=== PATIENT | female | born 1980 | race Caucasian/White ===

== ENCOUNTER 2020-03-07 22:07 | Emergency (ER) | payer OTHER ==
[~2020-03-07] VITALS: Ht 157.5 cm; Wt 83.9 kg
[2020-03-07 22:19] VITALS: BP 158/79
[2020-03-07] MEDS ORDERED: KETOROLAC 60 MG/2 ML VIAL IM ONE (22:50)
--- NOTE | 2020-03-07 23:17 | NUR ---
PT REFUSED IM TORODOL. ERMD MADE AWARE
--- NOTE | 2020-03-07 23:25 | NUR ---
39F PRESENTS TO ED WITH C/O ARM PAIN AND LT ARM NUMBNESS THAT RADIATES TO CHEST. PT C/O TIGHTNESS TO CHEST. REPORTS 3/10 CHEST PAIN. RR EVEN AND UNLABORED. DENIES N/V/D. DENIES SOB/COUGH. PT NEGATIVE FOR COVID SCREENING. PT WEARING MASK. PLACED ON CARDIAC MONITORING AND POSITIONED FOR COMFORT AT BED. HOB ELEVATED. BED LOWEST AND LOCKED, RAILS X 2
--- NOTE | 2020-03-07 23:28 | NUR ---
Dr. Pacheco examining patient.
--- NOTE | 2020-03-07 23:41 | NUR ---
EKG PERFORMED AT BEDSIDE.
[2020-03-07 23:45] VITALS: BP 158/79
--- NOTE | 2020-03-08 00:01 | NUR ---
Patient discharged with v/s stable. Written and verbal after care instructions given and explained. Patient alert, oriented and verbalized understanding of instructions. Ambulatory with steady gait. All questions addressed prior to discharge. ID band removed. Patient advised to follow up with PMD. Rx of NORCO AND MOTRIN given. Patient educated on indication of medication including possible reaction and side effects. Opportunity to ask questions provided and answered.
== END 2020-03-08 00:01 | disposition home or self-care (01) ==
LOC: MED 22:07
DX: M79.602 Pain in left arm (principal); E11.9 Type 2 diabetes mellitus without complications; I10 Essential (primary) hypertension
CPT/HCPCS: 81002; 81025; 93005; 99283; J1885